=== PATIENT | female | born 1995 | race Caucasian/White ===

== ENCOUNTER → 2017-10-05 | Outpatient (REF) | payer OTHER | LOC: ZZSTITCHES 10:52 | PROVIDERS: ATTEND Physician Assistant | DX: Z32.01 Encounter for pregnancy test, result positive (principal); N91.2 Amenorrhea, unspecified | CPT/HCPCS: 84703 ==

== ENCOUNTER → 2018-02-19 | Outpatient (CLI) | payer OTHER ==
--- NOTE | 2018-02-19 16:40 | EKG ---
FACILITY: [facility] - [place] PATIENT NAME: ROSEMARY GASPAR : [id number] MR: [id number] V: [id number] EXAM DATE: ORDERING PHYSICIAN: ALTHEA VALDOVINOS TECHNOLOGIST: Test Reason : Blood Pressure : / mmHG Vent. Rate : 097 BPM Atrial Rate : 097 BPM P-R Int : 142 ms QRS Dur : 080 ms QT Int : 352 ms P-R-T Axes : 049 023 035 degrees QTc Int : 447 ms Sinus rhythm Possible left atrial enlargement Nonspecific ST abnormality Abnormal ECG No previous ECGs available Confirmed by YOVANY ZAPATA ([id number]) on 02/20/2018 6:07:50 AM Referred By: Confirmed By:YOVANY ZAPATA
== END ==
LOC: RESP 16:24
PROVIDERS: ATTEND Physician Assistant
DX: R94.31 Abnormal electrocardiogram [ECG] [EKG] (principal)
CPT/HCPCS: 93005

== ENCOUNTER → 2018-03-04 | Outpatient (CLI) | payer OTHER ==
--- NOTE | 2018-03-05 15:44 | RT HOLTER TEST ---
FACILITY: [facility] - [place] PATIENT NAME: ROSEMARY GASPAR : [id number] MR: [id number] V: [id number] EXAM DATE: ORDERING PHYSICIAN: ALTHEA VALDOVINOS TECHNOLOGIST: PAOLO Hook-up date: 2018-03-04 08:45:00 Duration: 23:39:00 Test Indications: ABNORMAL EKG Medications: [id number] QRS complexes * Ventricular ectopics which represent % of total QRS comp. 2 Supraventricular ectopics which represent <1 % of total QRS comp. * Paced QRS complexes which represent % of total QRS comp. VENTRICULAR ECTOPY * Isolated * Bigeminal Cycles * Couplets * Runs * Beats in Runs * Beats LONGEST at * BPM at :: -- * Beats FASTEST at * BPM at :: -- SUPRAVENTRICULAR ECTOPY 2 Isolated 0 Couplets 0 Runs 0 Beats in Runs * Beats LONGEST at * BPM at :: -- * Beats FASTEST at * BPM at :: -- HEART RATES 76 MIN at 00:53:15 2018-03-05 115 AVG 155 MAX at 07:16:19 2018-03-05 LONGEST RR 1.048 secs at 01:42:13 2018-03-05 S-T LEVELS Channel 1 -12.800 mm MIN at 08:45:00 2018-03-04.800 mm MAX at 08:45:00 2018-03-04 Channel 2 -12.800 mm MIN at 08:45:00 2018-03-04.800 mm MAX at 08:45:00 2018-03-04 Channel 3 -12.800 mm MIN at 08:45:00 2018-03-04.800 mm MAX at 08:45:00 2018-03-04 Sinus tachycardia Confirmed by LELIA CARTER ([id number]) on 03/05/2018 3:42:56 PM Referred By: Overread By: LELIA CARTER
== END ==
LOC: RESP 03:04
PROVIDERS: ATTEND Physician Assistant
DX: R00.0 Tachycardia, unspecified (principal)
CPT/HCPCS: 93225; 93226

== ENCOUNTER → 2018-03-16 | Outpatient (CLI) | payer OTHER | LOC: US 08:00 | PROVIDERS: ATTEND Physician Assistant | DX: R94.31 Abnormal electrocardiogram [ECG] [EKG] (principal) | CPT/HCPCS: 93306 ==

== ENCOUNTER 2018-06-06 10:03 | Inpatient (IN) | payer OTHER ==
[~2018-06-06] VITALS: Ht 168.9 cm; Wt 90.7 kg
[~2018-06-06 10:03] MED LIST: ACYC-1 PO; ALB6.7R INH; CALC500T6 PO; FERR325T24 PO; LEVO50TA86 PO; MONT10TA PO; PNV1TABL77 PO; VITA150T2 PO
[2018-06-06 11:59] VITALS: BP 133/85; Ht 168.9 cm; Wt 90.7 kg
[2018-06-06] MEDS ORDERED: OXYTOCIN 30 UNIT/D5LR 500 ML 500 ML IV PRN (12:56)
[2018-06-06] MEDS ORDERED: FAMOTIDINE(*) 20MG/50ML PREMIX 50 ML IVPB PRN (12:56)
--- NOTE | 2018-06-06 12:57 | History & Physical ---
History of Present Illness EDC per LMP: Jun 09, 2018 Estimated Gestational Age: 39.4 Chief Complaint Contractions History of Present Illness 23-year-old presents to L&D for contractions. She denies any vaginal bleeding, LOF, preeclampsia symptoms. She reports good FM. c/b GBS positive, hypothyroid. History Patient's Blood Type: A Positive Rubella Status: Immune Group B Strep Screen: Positive (Clinda resistant) Obstetrical History: Primip Past Medical History: PMH: Exercise induced asthma, hypothyroid PSH: Lamont tooth Allergies: Coded Allergies: Penicillins (Verified Allergy, Severe, Hives, 06/06/18) Social History: No T/E/D. . Med Rec Home Meds Reported Medications Vitamin B Complex & Vit C No.4 (SUPER B COMPLEX) 150 Mg Tablet, 150 MG PO DAILY 05/23/18 Albuterol Sulfate (PROVENTIL HFA) 6.7 Gm Inh, 1-2 PUFF INH 3-4XD PRN for WHEEZING, INH 05/23/18 Calcium Carbonate (CALCIUM) 500 Mg Tablet, 500 MG PO DAILY 05/23/18 Ferrous Sulfate (IRON) 325 Mg Tablet, 325 MG PO DAILY 05/23/18 Acyclovir (ACYCLOVIR) 200 Mg Capsule, 200 MG PO BID 05/23/18 Levothyroxine Sodium (LEVOTHYROXINE SODIUM) 50 Mcg Tablet, 50 MCG PO QDAY, TAB 05/23/18 Montelukast Sodium (SINGULAIR) 10 Mg Tablet, 1 TAB PO BID, TAB 05/23/18 Pnv Cmb#21/Iron/Folic Acid ( COMPLETE CAPLET) 1 Each Tablet, 1 EACH PO 05/23/18 Review of Systems Constitutional: No Fever Neurological: No Syncope Eyes: No Vision Change Cardiovascular: No Chest Pain Respiratory: No Shortness of Breath, No Cough Gastrointestinal: No Nausea, No Vomiting, No Diarrhea Genitourinary: No Dysuria Musculoskeletal: No Pain Psychiatric: No Depression, No Anxiety Exam General Exam Vital Signs Vital Signs Date Time Temp Pulse Resp B/P (MAP) Pulse Ox O2 Delivery O2 Flow Rate FiO2 06/06/18 11:59 97.5 103 15 133/85 (101) 96 Room Air General Apperance: Alert/Awake/No Acute Distress Neuro: No Gross deficits Eyes: Normal Extraocular Movement & Vison Cardiovascular: Regular Rate and Rhythm Respiratory: No Respiratory Distress, Clear to Auscultation Abdomen: Gravid - Non-Tender : Normal Musculoskeletal: No Weakness/Pain Extremities: No Cyanosis,Clubbing or Edema Integumentary: Skin Intact without Lesions or Rash Psychological: Alert & Oriented X3, Appropriate Mood & Affect Cervical Dialation: 3 Cervical Effacement (%): 80 Cervical Consistency: Soft Cervical Position: Mid Station: 0 Presentation: Vertex Uterine Contractions(Q min): 7 Uterine Contraction Strength: Mild Fetus FHT Category: I Medical Decision Making Pre-Admit Course Medical Record Review: No Assessment and Plan Problems: (1) 39 weeks gestation of Assessment & Plan: Pt has progressed from 1 to 3cm in two hours, which is also two different people examining the cervix. Will allow to labor on her own. (2) Elevated blood pressure affecting , antepartum Assessment & Plan: Pt some elevated blood pressures upon admission when she first came to the floor. BP ranging 133-140/82-92. Pr:Cr = 0.6. She needs another elevated BP to diagnose preeclampsia. Will monitor closely. RACHEL IZQUIERDO MD Jun 06, 2018 12:46
[2018-06-06] MEDS ORDERED: FLUSH 10 ML SYR IVP PRN (13:00)
[2018-06-06] MEDS ORDERED: METOCLOPRAMIDE 10 MG/2 ML SDV IVP PRN (13:00)
[2018-06-06] MEDS ORDERED: LIDOCAINE/SOD BICARB 8.4% SYR SC PRN (13:00)
[2018-06-06] MEDS ORDERED: LIDOCAINE 1% LOCAL 300 MG/30ML INJ PRN (13:00)
[2018-06-06] MEDS ORDERED: LR(*) 1000 ML BAG 1,000 ML ONE (13:10)
[2018-06-06 13:28] LABS: PLATELET COUNT, AUTOMATED 241 K/uL (150-450)
[2018-06-06] MEDS: LR(*) 1000 ML BAG 1,000 ML IV SCH (13:37)
[2018-06-06] MEDS: VANCOMYCIN 1 GM ADDVIAL 1 GM in NS(*) 0.9% 250 ML ADDVAN BAG 250 ML IVPB SCH (13:38)
[2018-06-06] MEDS ORDERED: diphenhydrAMINE 50 MG/ML VIAL IVP ONE (14:25)
[2018-06-06] MEDS ORDERED: diphenhydrAMINE 50 MG/ML VIAL ONE (14:32)
[2018-06-06] MEDS ORDERED: ZOLPIDEM TARTRATE 5 MG TAB PO PRN (19:55)
[2018-06-06] MEDS ORDERED: TERBUTALINE SULF 1 MG/ML VIAL SUBQ PRN (19:55)
[2018-06-07] MEDS ORDERED: diphenhydrAMINE 25 MG CAP PO PRN ×2 (01:30→18:45)
[2018-06-07] MEDS: VANCOMYCIN 1 GM ADDVIAL 1 GM in NS(*) 0.9% 250 ML ADDVAN BAG 250 ML IVPB SCH ×2 (01:33→13:41)
[2018-06-07] MEDS ORDERED: OXYTOCIN 30 UNIT/D5LR 500 ML 500 ML IV PRN (02:00)
[2018-06-07] MEDS ORDERED: diphenhydrAMINE 50 MG/ML VIAL IVP ONE (02:45)
--- NOTE | 2018-06-07 03:09 | Labor Progress Note ---
Labor Subjective Progress Notes Subjective The patient's contractions slowed significantly yesterday evening. However, she continued to have high BP. She was diagnosed with preeclampsia and recommended to undergo pitocin induction. She is in agreement with this plan. No preeclampsia symptoms. Labor Objective Vital Signs Vital Signs Date Time Temp Pulse Resp B/P (MAP) Pulse Ox O2 Delivery O2 Flow Rate FiO2 06/06/18 11:59 97.5 103 15 133/85 (101) 96 Room Air Cervical Dialation: 4 Cervical Effacement (%): 60 Cervical Consistency: Soft Cervical Position: Mid Station: -1 Presentation: Vertex Uterine Contractions(Q min): 3 Uterine Contraction Strength: Mild UC Resting Tone: Soft Fetus FHT Category: I General Exam General Appearance: Alert/Awake/No Acute Distress Cardiovascular: Normal Rhythm & Peripheral Pulses, Regular Rate and Rhythm Respiratory: No Respiratory Distress, Clear to Auscultation Abdomen: Gravid - Non-Tender : Normal Musculoskeletal: No Weakness/Pain Extremities: No Cyanosis,Clubbing or Edema Integumentary: Skin Intact without Lesions or Rash Psychological: Alert & Oriented X3, Appropriate Mood & Affect Other Result Diagram: 06/06/18 1314 Assessment and Plan Problems: (1) Pre-eclampsia during in third trimester, antepartum Assessment & Plan: 23yo at 39w5d with preeclampsia without severe features. I have recommended induction with pitocin and she is amenable. This has been started. Will wait on ROM. Continue to monitor. Preeclampsia labs pending. (2) Group B Streptococcus carrier, +RV culture, currently Assessment & Plan: Pt gets hives with PCN and GBS is resistant to clinda. Vancomycin given x 2 doses. The first dose she got red with, so was given benadryl. Will continue to do benadryl as needed. (3) 39 weeks gestation of RACHEL IZQUIERDO MD Jun 07, 2018 03:08
[2018-06-07 05:32] LABS: PLATELET COUNT, AUTOMATED 222 K/uL (150-450)
--- NOTE | 2018-06-07 07:41 | Labor Progress Note ---
Labor Subjective Progress Notes Subjective Pt is tolerating contractions well. She is feeling more discomfort but not too bad. Labor Objective Vital Signs Vital Signs Date Time Temp Pulse Resp B/P (MAP) Pulse Ox O2 Delivery O2 Flow Rate FiO2 06/06/18 11:59 97.5 103 15 133/85 (101) 96 Room Air Vaginal Discharge/Fluid?: Clear Fluid Cervical Dialation: 4 Cervical Effacement (%): 60 Cervical Consistency: Soft Cervical Position: Mid Station: -1 Presentation: Vertex Uterine Contractions(Q min): 3 Uterine Contraction Strength: Mild UC Resting Tone: Soft Fetus FHT Category: I General Exam General Appearance: Alert/Awake/No Acute Distress Cardiovascular: Normal Rhythm & Peripheral Pulses, Regular Rate and Rhythm Respiratory: No Respiratory Distress, Clear to Auscultation Abdomen: Gravid - Non-Tender Musculoskeletal: No Weakness/Pain Extremities: No Cyanosis,Clubbing or Edema Integumentary: Skin Intact without Lesions or Rash Psychological: Alert & Oriented X3, Appropriate Mood & Affect Other Result Diagram: 06/07/1851206/07/18512 Assessment and Plan Problems: (1) Pre-eclampsia during in third trimester, antepartum Assessment & Plan: Pt is unchanged despite pitocin at 24mu/min. AROM performed to help with induction. Clear fluid. Continue to monitor for cervical change. (2) Group B Streptococcus carrier, +RV culture, currently Assessment & Plan: Pt gets hives with PCN and GBS is resistant to clinda. Vancomycin given x 2 doses. The first dose she got red with, so was given benadryl. Will continue to do benadryl as needed. (3) 39 weeks gestation of RACHEL IZQUIERDO MD Jun 07, 2018 07:41
[2018-06-07] MEDS ORDERED: LR(*) 1000 ML BAG 1,000 ML IV PRN (07:53)
[2018-06-07] MEDS ORDERED: BUPIVACAINE 0.25% MPF INJ EPI PRN (07:55)
[2018-06-07] MEDS ORDERED: FENTANYL/ROPIVACAINE 100 ML BAG EPI PRN (07:55)
[2018-06-07] MEDS ORDERED: LIDOCAINE/PF 2% 200MG/10ML AMP 200 MG/10 ML AMPUL EPI PRN (07:55)
[2018-06-07] MEDS ORDERED: BUPIVACAINE 0.5% INJ 30ML VIAL EPI PRN (07:55)
[2018-06-07] MEDS ORDERED: EPIDURAL KEYS XX PRN (07:55)
[2018-06-07] MEDS ORDERED: LIDO/EPI 2% MPF 1:200,000 20ML EPI PRN (07:55)
[2018-06-07] MEDS ORDERED: fentaNYL CITR 100 MCG/2 ML AMP IT PRN (07:55)
[2018-06-07] MEDS: fentaNYL CITR 100 MCG/2 ML AMP IVP PRN ×2 (10:00→10:54)
[2018-06-07] MEDS: LR(*) 1000 ML BAG 1,000 ML IV SCH ×2 (12:24→13:45)
[2018-06-07] MEDS ORDERED: ONDANSETRON 4 MG/2 ML VIAL ONE (12:58)
[2018-06-07] MEDS ORDERED: fentaNYL CITR 100 MCG/2 ML AMP ONE (12:58)
[2018-06-07] MEDS ORDERED: FENTANYL/ROPIVACAINE 100ML BAG 0 ML ONE (12:59)
[2018-06-07] MEDS ORDERED: diphenhydrAMINE 50 MG/ML VIAL IVP PRN (13:15)
--- NOTE | 2018-06-07 13:51 | Labor Progress Note ---
Labor Subjective Progress Notes Subjective Pt received epidural and is comfortable. Labor Objective Vital Signs Vital Signs Date Time Temp Pulse Resp B/P (MAP) Pulse Ox O2 Delivery O2 Flow Rate FiO2 06/06/18 11:59 97.5 103 15 133/85 (101) 96 Room Air Vaginal Discharge/Fluid?: Clear Fluid Cervical Dialation: 7 Cervical Effacement (%): 90 Cervical Consistency: Soft Cervical Position: Mid Station: 0 Presentation: Vertex Uterine Contractions(Q min): 3 Uterine Contraction Strength: Strong UC Resting Tone: Soft Fetus FHT Category: I General Exam General Appearance: Alert/Awake/No Acute Distress Extremities: No Cyanosis,Clubbing or Edema Integumentary: Skin Intact without Lesions or Rash Psychological: Alert & Oriented X3, Appropriate Mood & Affect Other Result Diagram: 06/07/1851206/07/18512 Assessment and Plan Problems: (1) Pre-eclampsia during in third trimester, antepartum Assessment & Plan: Pt has epidural and is transitioning to active labor. Anticipate . (2) Group B Streptococcus carrier, +RV culture, currently Assessment & Plan: Pt gets hives with PCN and GBS is resistant to clinda. Vancomycin given x 2 doses. The first dose she got red with, so was given benadryl. Will continue to do benadryl as needed. (3) 39 weeks gestation of RACHEL IZQUIERDO MD Jun 07, 2018 13:51
--- NOTE | 2018-06-07 14:09 | Anesthesia OB Pre-Anes Eval ---
History of Present Illness Anesthesia Start Date: Jun 07, 2018 Anesthesia Start Time: 12:54 OB Anesthesia Diagnosis: spontaneous labor EDC: Jun 09, 2018 : 1 Para: 0 Vital Signs: Vital Signs 06/06/18 11:59 Temp 97.5 Pulse 103 Resp 15 B/P (MAP) 133/85 (101) Pulse Ox 96 O2 Delivery Room Air Pain Ratin Heart Tones: 132 Result Diagram: 06/07/18 0513 06/07/18 05 Height (Inches): 66.50 Weight (Pounds): 200 BMI Calculated: 31.79 Past Medical History Medical History: asthma, other (hypothyroid) Surgical History: noncontributory Previous Anesthesia: general Hx Anesthesia Reactions: No Hx Family Anesthesia Reaction: No Home Meds Reported Medications Vitamin B Complex & Vit C No.4 (SUPER B COMPLEX) 150 Mg Tablet, 150 MG PO DAILY 05/23/18 Albuterol Sulfate (PROVENTIL HFA) 6.7 Gm Inh, 1-2 PUFF INH 3-4XD PRN for WHEEZING, INH 05/23/18 Calcium Carbonate (CALCIUM) 500 Mg Tablet, 500 MG PO DAILY 05/23/18 Ferrous Sulfate (IRON) 325 Mg Tablet, 325 MG PO DAILY 05/23/18 Acyclovir (ACYCLOVIR) 200 Mg Capsule, 200 MG PO BID 05/23/18 Levothyroxine Sodium (LEVOTHYROXINE SODIUM) 50 Mcg Tablet, 50 MCG PO QDAY, TAB 05/23/18 Montelukast Sodium (SINGULAIR) 10 Mg Tablet, 1 TAB PO BID, TAB 05/23/18 Pnv Cmb#21/Iron/Folic Acid ( COMPLETE CAPLET) 1 Each Tablet, 1 EACH PO 05/23/18 Allergies: Coded Allergies: Penicillins (Verified Allergy, Severe, Hives, 06/06/18) Anesthesia OB ROS Neurological: No migraines/headaches, No seizures, No neuropathy, No other ENT: Denies Tooth caps, Denies Loose teeth, Denies Chipped teeth, Denies Dentures, Denies Bridges, Denies Retainers, Denies Veneers, Denies Implants, Denies Tongue ring, Denies Other Pulmonary: asthma Airway Class: ll Cardiovascular ROS: No edema, No arrhythmia, No other GI ROS: NPO Last Solids Date: Jun 06, 2018 Last Solids Time: 19:00 ROS: No Herpes, No STD(s), No Liver Disease, No Renal Disease, No Other Endocrine ROS: thyroid disorder Musculoskeletal ROS: No low back pain, No low back injury, No scoliosis, No other ASA Classification: 2 Assessment and Plan Anesthesia Plan: GILBERTO KURTZ CRNA Jun 07, 2018 14:09
--- NOTE | 2018-06-07 14:14 | Procedure Note ---
Anesthetic Placement Note Anesthesia Plan: CSE Permit for Anesthesia Signed: Yes Anesthesia Technique: Patient Sitting Anesthesia Prep: Chlorhexidine Interspace: L 2-3 Local Anesthetic: 1% Lidocaine Amount Local - cc's: 3 Anesthesia Needle: 17g Touhabigail/Katharinaff Anesthesia Attempts: 1 Loss of Resistance: Normal Saline Depth of TONIE (cm): 4 Epidural Needle Placement: No CSF, No Blood, No Parasthesia Intrathecal Needle: 27 Gauge Pencan Cerebral Spinal Fluid: Yes, Clear Catheter Insertion (cm): 4 (10 cm at skin) Catheter Type: Carranza - Spring Wound Epidural Dressing: Tegaderm, Tape Anesthesia Tray: Lot Number ([id number]), Expiration Date (04/15), Reference Number ([id number]) Anesthesia Medications: Intrathecal Dose: mcg Fentanyl (10), mg Marcaine MPF (2.5), Time (1309) Epidural Test Dose: 1.5 Lido/Epi (1:200,000), Dose - mL (3), Time (1311), Negative Epidural Infusion: 0.2% Ropivicaine, With Fentanyl 2mcg/ml, Start Time: (1320) Epidural Pump Setting: Bolus Dose - mL (6), Lockout - Minutes (20), Maintenance Rate - mL/hr (6), Maximum per Hour - mL (24) Complications: None GILBERTO JOHNSON CRNA Jun 07, 2018 14:14
--- NOTE | 2018-06-07 15:43 | Anesthesia Progress Note ---
Progress/Maintenance Anesthesia Note Date: Jun 07, 2018 Anesthesia Note Time: 15:20 Pain Intensity: 2 Pump: On Pump Rate (ML/HR): 6 Sensory Level: feeling urge to pee Motor Level: Bending Knees-Bilateral Dilatation: 10 Position: Left, Tilt Anesthesia Treatment: pushed bolus button on pump GILBERTO JOHNSON CRNA Jun 07, 2018 15:43
[2018-06-07] MEDS ORDERED: CARBOPROST TROMETHAM 250MCG/ML IM ONLY ONE (15:56)
[2018-06-07] MEDS ORDERED: METHYLERGONOVINE MAL 0.2MG/ML ONE (15:57)
--- NOTE | 2018-06-07 17:54 | OB Delivery Note ---
Delivery Note Vaginal Delivery Type: Spont. Vaginal Delivery Delivery Date: Jun 07, 2018 Delivery Time: 17:34 Estimated Gestational Age(wks): 39.5 Length of Labor Stage II (hrs): 2 Labor Stage III (minutes): 5 Delivery Anesthesia: Epidural, Pudental Sex: Female Repair Needed: 2nd Degree Estimated Blood Loss: 300 Notes: Induced for preeclampsia without severe features, pitocin with AROM. RACHEL IZQUIERDO MD Jun 07, 2018 17:54
[2018-06-07] MEDS ORDERED: LOR5/325 PO (18:02)
[2018-06-07] MEDS ORDERED: IBUP800T37 PO (18:02)
[2018-06-07] MEDS ORDERED: MAGNESIUM HYDROXIDE* 30ML UDCP PO PRN (18:05)
[2018-06-07] MEDS ORDERED: ACETAMINOPHEN 325 MG TAB PO PRN (18:05)
[2018-06-07] MEDS ORDERED: LANOLIN OINT 7 GM TUBE TP PRN (18:05)
[2018-06-07] MEDS ORDERED: HYDROCORTISONE 2.5% CR 30GM TB PR PRN (18:05)
--- NOTE | 2018-06-07 18:31 | Anesthesia Progress Note ---
Assessment and Plan Anesthesia Plan: CSE Assessment Cath left in for a bit due to hi pit dose over several hrs Anesthesia Stop Day: Jun 07, 2018 Anesthesia Stop Time: 18:00 GILBERTO JOHNSON CRNA Jun 07, 2018 18:31
[2018-06-07] MEDS ORDERED: LIDOCAINE 1% LOCAL 300 MG/30ML 30 ML ONE (18:35)
[2018-06-07] MEDS: GLYCERIN/WITCH HAZEL LEAF 1 PK TP PRN (18:38)
[2018-06-07] MEDS: BENZOCAINE 20% 60 ML BTL TP PRN (18:38)
[2018-06-07] MEDS ORDERED: NALBUPHINE HCL 10 MG/ML AMP IVP PRN (18:45)
[2018-06-07] MEDS ORDERED: IBUPROFEN 800 MG TAB PO SCH (20:00)
[2018-06-07 22:30] VITALS: BP 132/73
[2018-06-07] MEDS: DOCUSATE CALCIUM 240 MG CAP PO SCH (22:37)
[2018-06-08 03:00] VITALS: BP 140/82
[2018-06-08] MEDS: IBUPROFEN 800 MG TAB PO SCH ×3 (03:02→19:30)
--- NOTE | 2018-06-08 03:16 | DELIVERY NOTE ---
DELIVERY DATE: June 07, 2018 SURGEON: Yvette Wright MD ANESTHESIA: (1) Epidural by Yohana Ricks CRNA. (2) Pudendal block at the time of delivery. PREOPERATIVE DIAGNOSIS Intrauterine at 39 weeks and 5 days, presenting for an induction due to preeclampsia without severe features. POSTOPERATIVE DIAGNOSES 1. Intrauterine at 39 weeks and 5 days, presenting for an induction due to preeclampsia without severe features. 2. Delivery of a viable female at 1734 hours with weighing 8lb 13oz with Apgars of 6 at one minute, 6 at five minutes and 7 at ten minutes. PROCEDURES 1. Spontaneous vaginal delivery. 2. Repair of a second-degree midline laceration. INDICATIONS This patient is a 23-year-old 1, para 0, who initially presented to Labor and Delivery at 39 weeks and 4 days with complaints of uterine contractions. She was found to not be in labor; however, her blood pressures were elevated. She also had an elevated wtcbwlk-dj-pyctnxqelr ratio. After being diagnosed with preeclampsia without severe features, she was consented for induction of labor. She therefore was started on Pitocin, at which time she was 4, 60, and -1. She was group B strep positive and did receive vancomycin throughout labor for this. She then had minimal progression with Pitocin, and therefore an amniotomy was performed at 0736 hours. She then progressed to complete by 1523 hours. During that time, she had received an epidural for anesthesia once she was noted to be complete. She was able to push and bring the infant's vertex to the perineum. PROCEDURE The patient was properly identified and placed in the dorsal lithotomy position. She was prepped and draped in the usual fashion for a vaginal delivery. Upon initial of the vertex, the patient was complaining of significant pain and burning on the perineum. She therefore was consented for a pudendal block. Lidocaine 1%, 10 mL, was administered in the pudendal region on either side between contractions. Once this was completed, the patient was able to deliver the infant's vertex spontaneously in the BRIGETTE position. The anterior shoulder delivered easily, followed by the posterior shoulder. The remainder of the was then easily delivered. The infant had spontaneous cry and spontaneous movement of all four extremities. The was dried, stimulated, and the nasopharynx and oropharynx were bulb- suctioned. The was then passed to the mother's abdomen in good condition. Of note, there was terminal meconium but no meconium noted in the fluid from the infant's mouth. After approximately one minute, the cord was clamped x2 and cut by the father of the baby. The was then taken to the warmer for further evaluation and resuscitation by the nurses. At this time, Pitocin was started through the IV fluid to help firm the uterus, and the placenta delivered spontaneously intact and was passed off the table. Examination of the cervix, vaginal vault, and perineum revealed a second-degree midline laceration which did extend up through the vagina 3 cm. This was repaired using a 2-0 Vicryl in the normal fashion. Once this repair was completed, hemostasis was assured, and the fundus did have adequate tone. A straight catheter was then utilized to drain 200 mL of clear yellow urine. The patient tolerated the this procedure well and recovered in Labor and Delivery. Her infant was taken to the nursery due to respiratory issues. ROBERTO
--- NOTE | 2018-06-08 05:51 | OB/GYN Progress Note ---
OB Subjective Progress Notes Subjective Doing well. Pain controlled with oral medications. Tolerating regular diet. Ambulating. Voiding. Normal lochia. No preeclampsia symptoms. Baby is in nursery for breathing reasons. OB Objective Physical Exam Vital Signs Date Time Temp Pulse Resp B/P (MAP) Pulse Ox O2 Delivery O2 Flow Rate FiO2 06/08/18 03:00 97.2 100 16 140/82 (101) Room Air 06/06/18 11:59 96 Intake and Output 06/08/18 07:00 Intake Total 3000 ml Output Total 1300 ml Balance 1700 ml Intake IV Total 3000 ml Output Urine Total 1300 ml # Voids 3 General Appearance: Alert/Awake/No Acute Distress Neurological: No Gross deficits Eyes: Normal Extraocular Movement & Vison Cardiovascular: Normal Rhythm & Peripheral Pulses, Regular Rate and Rhythm Respiratory: No Respiratory Distress, Clear to Auscultation Abdomen: Soft, Non-Tender, Non-Distended, Fundus Firm Musculoskeletal: No Weakness/Pain Extremities: No Cyanosis,Clubbing or Edema Integumentary: Skin Intact without Lesions or Rash Psychological: Alert & Oriented X3, Appropriate Mood & Affect Result Diagram: 06/07/1851206/07/18512 Assessment and Plan Problems: (1) examination following vaginal delivery Assessment & Plan: PPD#1 s/p . Baby in nursery. Will likely discharge tomorrow, and can go to rooming in status if needed. (2) Pre-eclampsia during in third trimester, antepartum Assessment & Plan: BP is stable. Continue to monitor BP. No preeclampsia symptoms. RACHEL IZQUIERDO MD Jun 08, 2018 05:51
[2018-06-08] MEDS: APAP/HYDROCODONE 325/5 TAB PO PRN (07:14)
[2018-06-08 07:28] VITALS: BP 125/86
[2018-06-08] MEDS: DOCUSATE CALCIUM 240 MG CAP PO SCH ×2 (08:37→21:00)
[2018-06-08] MEDS ORDERED: INFLUENZA VIRUS VAC 0.5ML SYR IM ONLY ONE (09:00)
[2018-06-08] MEDS ORDERED: DIPHTH/TETANUS/ACEL. PERTUSSIS IM ONLY ONE (09:00)
[2018-06-08] MEDS ORDERED: MEASLES,MUMP,RUBELLA VAC 0.5ML SUBQ ONE (09:00)
[2018-06-08 11:00] VITALS: BP 133/77
[2018-06-08 15:45] VITALS: BP 141/81
[2018-06-08 15:53] VITALS: BP 133/76
--- NOTE | 2018-06-08 16:30 | Anesthesia Post Eval Note ---
Anesthesia Post Eval Note Vital Signs 06/08/18 15:53 Temp 97.6 Pulse 109 Resp 20 B/P (MAP) 133/76 (95) Pulse Ox 96 O2 Delivery Room Air Pt able to participate in Eval: Yes Cardiovascular Status: Satisfactory Respiratory Status: Satisfactory Pain Managment: Satisfactory PO Nausea/Vomiting: Satisfactory Temperature Management: Satisfactory Mental Status: Satisfactory, Alert, Oriented X3 Post-Op Hydration Status: Satisfactory, Tolerating PO Well, Voiding w/o Difficulty Anesthesia Type: GILBERTO KURTZ CRNA Jun 08, 2018 16:30
[2018-06-08 20:12] VITALS: BP 137/87
[2018-06-09] VITALS (35 sets, daily range): BP systolic 119–143; BP diastolic 76–102
[2018-06-09] MEDS: LEVOTHYROXINE SOD 0.05 MG TAB PO SCH (06:00)
--- NOTE | 2018-06-09 07:14 | OB/GYN Progress Note ---
OB Subjective Progress Notes Subjective Feeling well. Pain controlled and bleeding light. Ambulating well and tolerating regular diet. GI: NEG Nausea : Voiding Well Pain: Mild OB Objective Physical Exam Vital Signs Date Time Temp Pulse Resp B/P (MAP) Pulse Ox O2 Delivery O2 Flow Rate FiO2 06/09/18 02:31 130/90 (103) 06/09/18 01:01 98.0 98 18 96 Room Air Intake and Output 06/09/18 07:00 Intake Total 341 ml Balance 341 ml Intake Oral 341 ml General Appearance: Alert/Awake/No Acute Distress Neurological: No Gross deficits Eyes: Normal Extraocular Movement & Vison Cardiovascular: Normal Rhythm & Peripheral Pulses, Regular Rate and Rhythm Respiratory: No Respiratory Distress, Clear to Auscultation Abdomen: Soft, Non-Tender, Non-Distended, Fundus Firm, Non-Tender Musculoskeletal: No Weakness/Pain Extremities: No Cyanosis,Clubbing or Edema Integumentary: Skin Intact without Lesions or Rash Psychological: Alert & Oriented X3, Appropriate Mood & Affect Result Diagram: 06/07/1813 06/07/18512 Assessment and Plan LOG COOKER Plan: Routine Post- Care, Discharge Home Today Problems: (1) examination following vaginal delivery Assessment & Plan: Home later today if baby is ready for discharge. If not, discharge to room in. (2) Pre-eclampsia during in third trimester, antepartum Assessment & Plan: Precautions regarding blood pressure. ARUN ARANDA MD Jun 09, 2018 07:14
--- NOTE | 2018-06-09 07:20 | OB/GYN Discharge Summary ---
Discharge Summary Reason for Hosp/Final Diag: (1) examination following vaginal delivery Hospital Course & Plan: Home later today if baby is ready for discharge. If not, discharge to room in. (2) Pre-eclampsia during in third trimester, antepartum Hospital Course & Plan: Precautions regarding blood pressure. Lates Vital Signs Vital Signs Date Time Temp Pulse Resp B/P (MAP) Pulse Ox O2 Delivery O2 Flow Rate FiO2 06/09/18 02:31 130/90 (103) 06/09/18 01:01 98.0 98 18 96 Room Air Weight (Pounds): 200 Result Diagram: 06/07/1851206/07/18512 Condition: Improved Discharge: Home, Self Skilled Nursing Meds Active Scripts Hydrocodone Bit/Acetaminophen (HYDROCODON-ACETAMINOPHEN 5-325) 1 Each Tablet, 1 EACH PO Q4-6H PRN for pain, #20 TAB 0 Refills Prov:RACHEL IZQUIERDO MD 06/07/18 Reported Medications Vitamin B Complex & Vit C No.4 (SUPER B COMPLEX) 150 Mg Tablet, 150 MG PO DAILY 05/23/18 Albuterol Sulfate (PROVENTIL HFA) 6.7 Gm Inh, 1-2 PUFF INH 3-4XD PRN for WHEEZ ING, INH 05/23/18 Calcium Carbonate (CALCIUM) 500 Mg Tablet, 500 MG PO DAILY 05/23/18 Ferrous Sulfate (IRON) 325 Mg Tablet, 325 MG PO DAILY 05/23/18 Acyclovir (ACYCLOVIR) 200 Mg Capsule, 200 MG PO BID 05/23/18 Levothyroxine Sodium (LEVOTHYROXINE SODIUM) 50 Mcg Tablet, 50 MCG PO QDAY, TAB 05/23/18 Montelukast Sodium (SINGULAIR) 10 Mg Tablet, 1 TAB PO BID, TAB 05/23/18 Pnv Cmb#21/Iron/Folic Acid ( COMPLETE CAPLET) 1 Each Tablet, 1 EACH PO 05/23/18 Follow up Referrals: TYPING SECTION CHIEF - In Two Weeks @ [facility] Follow up with: Dr. Barnhart [phone] Follow up in: 6 wks PP or PO Discharge Diet: As Tolerates Discharge Activity: As Tolerates, No Heavy Lifting x 6 wks, No Heavy Lifting > 10lb, Pelvic Rest Copies to: ARUN BARNHART MD ; ARUN BARNHART MD Jun 09, 2018 07:20
[2018-06-09] MEDS ORDERED: IBUPROFEN 800 MG TAB PO SCH (08:00)
[2018-06-09] MEDS: DOCUSATE CALCIUM 240 MG CAP PO SCH ×2 (08:04→21:35)
[2018-06-09] MEDS: IBUPROFEN 800 MG TAB PO SCH ×3 (08:17→23:29)
[2018-06-09] MEDS ORDERED: MONTELUKAST SODIUM 10 MG TAB PO SCH (09:00)
[2018-06-09] MEDS: APAP/HYDROCODONE 325/5 TAB PO PRN (11:28)
[2018-06-09 13:26] LABS: PLATELET COUNT, AUTOMATED 250 K/uL (150-450)
--- NOTE | 2018-06-09 13:26 | OB/GYN Progress Note ---
OB Subjective Progress Notes Subjective Called about change in mentation. Pt got up to use the bathroom and became faint. She sat down and didn't feel better. She felt as if she would pass out. Vital were normal per the nurse. Her face and lips became pale. Upon my arrival she was responding to questions, reports full use of all faculties and had color in face. Vitals stable and pulse 70s, BP 130s/90s, normal reflexes. OB Objective Physical Exam Vital Signs Date Time Temp Pulse Resp B/P (MAP) Pulse Ox O2 Delivery O2 Flow Rate FiO2 06/09/18 11:24 136/100 (112) 06/09/18 07:20 98.8 87 20 96 Room Air Intake and Output 06/09/18 07:00 Intake Total 341 ml Balance 341 ml Intake Oral 341 ml General Appearance: Other (somnolent but responsive) Neurological: No Gross deficits, Other (normal reflexes) Cardiovascular: Normal Rhythm & Peripheral Pulses, Regular Rate and Rhythm Respiratory: No Respiratory Distress, Clear to Auscultation Abdomen: Soft, Non-Tender, Non-Distended, Fundus Firm, Non-Tender Musculoskeletal: No Weakness/Pain Extremities: No Cyanosis,Clubbing or Edema Integumentary: Skin Intact without Lesions or Rash Psychological: Alert & Oriented X3, Appropriate Mood & Affect Result Diagram: 06/07/1851206/07/18512 Assessment and Plan Problems: (1) examination following vaginal delivery (2) Pre-eclampsia during in third trimester, antepartum (3) Syncopal episodes Assessment & Plan: Will check labs but symptoms and exam point to syncope. Will monitor closely for resolution. Problem Qualifiers (1) Syncopal episodes: Syncope type: unspecified Qualified Codes: R55 - Syncope and collapse ARUN ARANDA MD Jun 09, 2018 13:26
--- NOTE | 2018-06-09 14:20 | Anesthesia Post Eval Note ---
Anesthesia Post Eval Note Vital Signs 06/09/18 11:24 B/P (MAP) 136/100 (112) Pt able to participate in Eval: Yes Cardiovascular Status: Satisfactory Respiratory Status: Unsatisfactory Pain Managment: Satisfactory PO Nausea/Vomiting: Unsatisfactory Temperature Management: Satisfactory Mental Status: Satisfactory Post-Op Hydration Status: Satisfactory Anesthesia Type: CSE (Pt has a dizzy spell while up, now c/o post chest wall pain and dyspnea) GILBERTO JOHNSON CRNA Jun 09, 2018 14:20
[2018-06-09] MEDS ORDERED: LR(*) 1000 ML BAG 1,000 ML ONE (14:40)
[2018-06-09] MEDS ORDERED: IOPAMIDOL 76% 75 ML INFUS BTL 75 ML ONE (15:12)
[2018-06-09] MEDS ORDERED: NS(*) 0.9% 50 ML BAG 50 ML ONE (15:13)
--- NOTE | 2018-06-09 15:48 | RADIOLOGY IMAGING REPORT ---
FACILITY: [facility] PATIENT NAME: Rosio Hoang : 1995 MR: [id number] V: [id number] EXAM DATE: ORDERING PHYSICIAN: ARUN ARANDA TECHNOLOGIST: Location: [facility] - [place], [place] Patient: Rosio Hoang : 1995 Visit/Account:[id number] Date of Sevice: 06/09/2018 CT angiogram chest with contrast Indication: Short of breath. Comparison: None available. Technique: Axial CT images are obtained through the chest after administration of 75 mL Isovue 370 IV contrast. Reformatted coronal and sagittal images were reviewed as well as coronal MIP images. One of the following dose optimization techniques was utilized in the performance of this exam: auto mated exposure control; adjustment of the mA and/or kV according to the patient's size; or use of an iterative reconstruction technique. Specific details can be referenced in the facility's radiology C T exam operational policy. FINDINGS: No evidence of filling defect within the pulmonary vasculature to suggest pulmonary embolus. Heart is normal size without pericardial effusion. Aorta shows no aneurysm or dissection. Mediastinum and hilar regions show no enlarged lymph nodes or abnormal density. Lungs show minimal pleural fluid bilaterally with minimal atelectasis. No consolidations or pneumotho rax. No discrete nodule or focal interstitial opacities. Airways are clear. Bony structures show no acute fractures or aggressive bony lesions. Chest wall shows no enlarged axil michael lymph nodes or masses. Limited views of the upper abdomen are unremarkable. IMPRESSION: 1. No evidence of pulmonary embolus. 2. Minimal bilateral pleural fluid with minimal atelectasis. Report Dictated By: Gabriele Kumar at 06/09/2018 3:38 PM Report E-Signed By: Gabriele Kumar at 06/09/2018 3:44 PM [id number]
[2018-06-09] MEDS ORDERED: FUROSEMIDE 20 MG/2 ML VIAL IVP ONE (18:40)
--- NOTE | 2018-06-09 19:33 | OB/GYN Progress Note ---
OB Subjective Progress Notes Subjective Called again earlier with pt report of upper back pain and shortness of breath. Her blood sugar was low from before and once this was brought back up, she feels better. CT pulmonary angiogram was ordered and showed no PE but some mild pleural fluid and atelectasis. Pt feels edematous. OB Objective Physical Exam Vital Signs Date Time Temp Pulse Resp B/P (MAP) Pulse Ox O2 Delivery O2 Flow Rate FiO2 06/09/18 17:54 84 97 Room Air 06/09/18 17:30 132/88 (103) 06/09/18 16:00 2.0 06/09/18 15:50 20 06/09/18 14:25 98.1 Intake and Output 06/09/18 07:00 Intake Total 341 ml Balance 341 ml Intake Oral 341 ml General Appearance: Other (somnolent but responsive) Neurological: No Gross deficits, Other (normal reflexes) Cardiovascular: Normal Rhythm & Peripheral Pulses, Regular Rate and Rhythm Respiratory: No Respiratory Distress, Clear to Auscultation (no rales or rubs) Abdomen: Soft, Non-Tender, Non-Distended, Fundus Firm, Non-Tender Musculoskeletal: No Weakness/Pain Extremities: No Cyanosis,Clubbing or Edema Integumentary: Skin Intact without Lesions or Rash Psychological: Alert & Oriented X3, Appropriate Mood & Affect Result Diagram: 06/09/18 1321 06/09/18 1321 Assessment and Plan Problems: (1) examination following vaginal delivery (2) Pre-eclampsia during in third trimester, antepartum (3) Syncopal episodes Assessment & Plan: Seems to be due to blood sugar and has since improved. Ordered Lasix 20 mg IV to assist with diuresing and getting the edema resolved. Recommend she stay another night for observation. Problem Qualifiers (1) Syncopal episodes: Syncope type: unspecified Qualified Codes: R55 - Syncope and collapse ARUN ARANDA MD Jun 09, 2018 19:33
[2018-06-09] MEDS ORDERED: MONTELUKAST SODIUM 10 MG TAB PO ONE (21:40)
[2018-06-10 03:30] VITALS: BP 135/81
[2018-06-10] MEDS: LEVOTHYROXINE SOD 0.05 MG TAB PO SCH (06:00)
[2018-06-10 06:14] LABS: PLATELET COUNT, AUTOMATED 288 K/uL (150-450)
[2018-06-10] MEDS: IBUPROFEN 800 MG TAB PO SCH (07:46)
[2018-06-10] MEDS: DOCUSATE CALCIUM 240 MG CAP PO SCH (08:03)
[2018-06-10 08:05] VITALS: BP 134/93
--- NOTE | 2018-06-10 08:24 | OB/GYN Progress Note ---
OB Subjective Progress Notes Subjective Feeling much better. Pain in chest is gone and ambulating and tolerating regular diet without difficulty. No testing yesterday was abnormal and her vitals have remained stable. GI: NEG Nausea : Voiding Well Pain: Mild OB Objective Physical Exam Vital Signs Date Time Temp Pulse Resp B/P (MAP) Pulse Ox O2 Delivery O2 Flow Rate FiO2 06/10/18 03:30 97.9 106 18 135/81 (99) Room Air 06/09/18 19:26 94 06/09/18 16:00 2.0 Intake and Output 06/10/18 07:00 Intake Total 1670 ml Output Total 4700 ml Balance -3030 ml Intake Oral 920 ml IV Total 750 ml Output Urine Total 4700 ml # Voids 8 General Appearance: Alert/Awake/No Acute Distress Neurological: No Gross deficits Cardiovascular: Normal Rhythm & Peripheral Pulses, Regular Rate and Rhythm Respiratory: No Respiratory Distress, Clear to Auscultation (no rales or rubs) Abdomen: Soft, Non-Tender, Non-Distended, Fundus Firm, Non-Tender Musculoskeletal: No Weakness/Pain Extremities: No Cyanosis,Clubbing or Edema Integumentary: Skin Intact without Lesions or Rash Psychological: Alert & Oriented X3, Appropriate Mood & Affect Result Diagram: 06/10/18 0558 06/10/18 0558 Assessment and Plan NPS Plan: Discharge Home Today Problems: (1) examination following vaginal delivery Assessment & Plan: Reviewed precautions and instructions. Will see again at 6 weeks for exam. (2) Pre-eclampsia during in third trimester, antepartum Assessment & Plan: stable and BPs have been near normotensive. Precautions discussed and will see how she feels . (3) Syncopal episodes Status: Resolved Problem Qualifiers (1) Syncopal episodes: Syncope type: unspecified Qualified Codes: R55 - Syncope and collapse ARUN ARADNA MD Jun 10, 2018 08:24
--- NOTE | 2018-06-10 10:39 | Anesthesia Post Eval Note ---
Anesthesia Post Eval Note Vital Signs Pt able to participate in Eval: Yes Cardiovascular Status: Satisfactory Respiratory Status: Satisfactory Pain Managment: Satisfactory PO Nausea/Vomiting: Satisfactory Temperature Management: Satisfactory Mental Status: Satisfactory, Alert, Oriented X3 Post-Op Hydration Status: Satisfactory, Tolerating PO Well, Voiding w/o Difficulty Anesthesia Tolerance: Pt up and about. Claims she felt better after lasix, pain in posterior chest wall gone as well. Also felt better after eating. GILBERTO JOHNSON [employer] Jun 10, 2018 10:39
[2018-06-10] MEDS: BENZOCAINE 20% 60 ML BTL TP PRN (11:44)
[2018-06-10] MEDS: GLYCERIN/WITCH HAZEL LEAF 1 PK TP PRN (11:44)
[2018-06-10 11:45] VITALS: BP 140/98
[2018-06-10] MEDS ORDERED: MONTELUKAST SODIUM 10 MG TAB PO SCH (21:00)
== END 2018-06-10 11:45 | disposition home or self-care (01) | DRG 807 ==
LOC: OB 10:03
PROVIDERS: ADMIT Obstetrics & Gynecology; ATTEND Obstetrics & Gynecology
PROC: 10E0XZZ Delivery of Products of Conception, External Approach (ICD-10-PCS; principal; 2018-06-07)
PROC: 0KQM0ZZ Repair Perineum Muscle, Open Approach (ICD-10-PCS; 2018-06-07)
PROC: 10907ZC Drainage of Amniotic Fluid, Therapeutic from Products of Conception, Via Natural or Artificial Opening (ICD-10-PCS; 2018-06-07)
PROC: 3E033VJ Introduction of Other Hormone into Peripheral Vein, Percutaneous Approach (ICD-10-PCS; 2018-06-07)
DX: O14.04 Mild to moderate pre-eclampsia, complicating childbirth (principal); Z37.0 Single live birth; O99.824 Streptococcus B carrier state complicating childbirth; O99.284 Endocrine, nutritional and metabolic diseases complicating childbirth; E03.9 Hypothyroidism, unspecified; Z3A.39 39 weeks gestation of pregnancy; Z88.0 Allergy status to penicillin; O77.0 Labor and delivery complicated by meconium in amniotic fluid; O70.1 Second degree perineal laceration during delivery
CPT/HCPCS: 36415; 36416; 71275; 81001; 82040; 82247; 82310; 82374; 82435; 82565; 82570; 82947; 82948; 83615; 84075; 84132; 84155; 84156; 84295; 84450; 84460; 84520; 85025; 86703; 86850; 86900; 86901; J1200; J1940; J2001; J2405; J2590; J3010; J3370; J7050; J7120; Q0163; Q9967; S0020